=== PATIENT | female | born 1975 | race African-American/Black ===

== ENCOUNTER 2024-11-30 17:45 | Emergency (ER) | payer OTHER ==
[~2024-11-30] VITALS: Ht 167.6 cm; Wt 100.0 kg
[2024-11-30 17:46] VITALS: O2SAT 99
[2024-11-30 18:08] VITALS: BP 169/72; PULSE 103; RESP 17; TEMP 36.9; O2SAT 99
== END 2024-11-30 20:50 | disposition home or self-care (01) ==
LOC: ER 17:45
DX: G40.909 Epilepsy, unspecified, not intractable, without status epilepticus (principal); I10 Essential (primary) hypertension; Z79.899 Other long term (current) drug therapy; Z88.8 Allergy status to other drugs, medicaments and biological substances
CPT/HCPCS: 99283

== ENCOUNTER 2024-12-08 20:42 | Emergency (ER) | payer OTHER ==
[~2024-12-08] VITALS: Ht 167.6 cm; Wt 90.0 kg
[2024-12-08 20:53] VITALS: TEMP 36.7; O2SAT 98
[2024-12-08] MEDS: DIVALPROEX SODIUM 250MG DR TABLET PO ONE (21:33)
[2024-12-08 21:46] LABS: BASOPHILS % 0.6 % (0.0-2.0); EOSINOPHILS % 0.5 % (0.0-5.0); HEMATOCRIT. 42.3 % (36.0-48.0); HEMOGLOBIN. 14.3 g/dL (12.0-16.0); LYMPHOCYTES % 20.5 % (20.0-50.0); MEAN CORPUSCULAR HEMOGLOBIN 32.1 pg (28.0-32.0); MEAN CORPUSCULAR HGB CONC 33.9 g/dL (31.0-37.0); MEAN CORPUSCULAR VOLUME 94.7 fL (81.0-99.0); MEAN PLATELET VOLUME 8.1 fl (7.4-10.4); MONOCYTES % 10.6 % (2.0-8.0); NEUTROPHILS % 67.8 % (40.0-76.0); PLATELET 263 x1000/uL (130-400); RED BLOOD CELL COUNT 4.47 mill/uL (4.2-5.4); RED CELL DISTRIBUTION WIDTH 15.2 % (11.6-14.6); WHITE BLOOD COUNT 14.1 x1000/uL (4.5-11.0)
[2024-12-08 21:52] LABS: CHLORIDE 101 mEq/L (98-107); POTASSIUM 4.6 mEq/L (3.5-5.1); SODIUM 133 mEq/L (136-145)
[2024-12-08 21:53] LABS: CALCIUM 8.9 mg/dL (8.7-10.4); CARBON DIOXIDE 28 mEq/L (21-32)
[2024-12-08] MEDS: LABETALOL 5MG/ML 4ML INJ IV ONE (21:54)
[2024-12-08 21:58] LABS: CREATININE 0.8 mg/dL (0.6-1.0); GLUCOSE 80 mg/dL (70-105); UREA NITROGEN BLOOD 11 mg/dL (9-23)
[2024-12-08 22:14] LABS: HCG SCREEN NEGATIVE
[2024-12-08 22:21] LABS: ETHANOL BLOOD < 10 mg/dL (<10)
[2024-12-08] MEDS ORDERED: AMLO10TA80 MT (22:34)
[2024-12-09 00:15] VITALS: BP 154/105; PULSE 93; RESP 16; O2SAT 96
== END 2024-12-09 00:24 | disposition home or self-care (01) ==
LOC: ER 20:42
DX: R56.9 Unspecified convulsions (principal); I10 Essential (primary) hypertension; Z79.899 Other long term (current) drug therapy; Z88.8 Allergy status to other drugs, medicaments and biological substances
CPT/HCPCS: 80048; 80320; 84703; 85025; 36415; 96374; 99283; J3490; G0480